=== PATIENT | male | born 1990 | race Caucasian/White ===

== ENCOUNTER 2018-10-24 21:47 | Emergency (ER) | payer BC ==
[2018-10-24] MEDS ORDERED: Cephalexin 500 MG Cap PO ONE (22:20)
[2018-10-25 01:34] VITALS: BP 129/73
--- NOTE | 2018-10-25 02:56 | EDM.PDOC ---
ED HPI GENERAL MEDICAL PROBLEM - General Chief Complaint: Laceration Stated Complaint: LACERATION RT HAND Time Seen by Provider: 10/24/18 22:00 Source of Information: Reports: Patient History Limitations: Reports: No Limitations, Other - History of Present Illness INITIAL COMMENTS - FREE TEXT/NARRATIVE: Patient was working and accidentally cut his right palmar surface with a utility knife. The 4 cm laceration transects the distal palmar full but does not transect any tendons. No loss of sensation or ROM of his hand or fingers. Tetanus up-to-date - Related Data Allergies Allergy/AdvReac Type Severity Reaction Status Date / Time No Known Allergies Allergy Verified 10/24/18 22:26 Home Meds: Home Meds PARoxetine HCl [Paxil Cr] 37.5 mg PO DAILY 09/08/16 [History] Cephalexin [Keflex] 500 mg PO TID #30 capsule 10/24/18 [Rx] Past Medical History - Past Health History Medical/Surgical History: Denies Medical/Surgical History Other Musculoskeletal History: left wrist pain Neurological History: Reports: Headaches, Chronic Social & Family History - Family History Family Medical History: Noncontributory - Tobacco Use Smoking Status *Q: Current Every Day Smoker Years of Tobacco use: 8 Packs/Tins Daily: 0.5 - Caffeine Use Caffeine Use: Reports: Energy Drinks, Soda - Recreational Drug Use Recreational Drug Use: No ED ROS GENERAL - Review of Systems Review Of Systems: ROS reveals no pertinent complaints other than HPI. ED EXAM, SKIN/RASH Exam: See Below Text/Narrative:: This pleasant man is in no acute distress has a 4 cm transdermal laceration right palmar penetrates into the subcutaneous fat but does not involve any tendons or compromise sensation or range of motion his fingers. Exam Limited By: No Limitations General Appearance: Alert, Other (Pleasant man in no acute distress) Eye Exam: Bilateral Eye: Normal Inspection Ears: Normal External Exam Nose: Normal Inspection Throat/Mouth: Normal Inspection Head: Atraumatic Neck: Normal Inspection Respiratory/Chest: No Respiratory Distress, Lungs Clear, Normal Breath Sounds, No Accessory Muscle Use, Chest Non-Tender Cardiovascular: Normal Peripheral Pulses, Regular Rate, Rhythm, No Edema, No Gallop, No JVD, No Murmur, No Rub Peripheral Pulses: 1+: Radial (L), Radial (R) GI/Abdominal: Normal Bowel Sounds, Soft (Male) Exam: Deferred Rectal (Males) Exam: Deferred Extremities: Normal Inspection Neurological: Alert, Oriented, CN II-XII Intact, Normal Cognition, Normal Gait, Normal Reflexes, No Motor/Sensory Deficits Psychiatric: Normal Affect Skin: Warm, Dry, Intact, Other (Laceration right palmar surface 4 cm transverse this to palmar crease between the second and third distal metatarsal area. does not involve the MP joints) Location, Skin: Lower Extremity, Right, Other (Right hand laceration 4 cm) Lymphatic: No Adenopathy Course - Vital Signs Last Recorded V/S: Last Vital Signs Temp 36.6 C 10/24/18 22:00 Pulse 78 10/24/18 22:00 Resp 22 H 10/24/18 22:00 BP 129/73 10/24/18 22:00 Pulse Ox 98 10/24/18 22:00 - Orders/Labs/Meds Meds: Medications Discontinued Medications Generic Name Dose Route Start Last Admin Trade Name Freq PRN Reason Stop Dose Admin Cephalexin 500 mg 10/24/18 22:20 10/24/18 22:32 Keflex PO 10/24/18 22:21 500 mg ONETIME ONE Administration - Re-Assessments/Exams Free Text/Narrative Re-Assessment/Exam: Laceration repair patient's right hand 4 cm palmar laceration that crosses the distal crease in angular fraction overt the distal 2nd and 3rd metacarpal bones enters through the dermis into the subcutaneous fat. Does not involve the tendinous structures. Sensation and motion of the fingers is intact. Patient was taken to surgical scrub bay and vigorous 8 minutes Betadine scrub with surgical scrub brush was undertaken under running water. The subcutaneous cutaneous percent injection of the lidocaine was infiltrated into the wound. Then the ulnar side of the laceration edges were freshened by removing millimeter of irregular soft tissue. The radial side of the laceration entry did not require did not debridemont. Small fragments of dirt removed. Wound was washed liberally. And then reapproximated 6 tissues of 4-0 Ethilon. Patient tolerated procedure well. Patient given prescription for Keflex 500 mg 3 times a day- 30 tablets. He received 500 mg Keflex in the ED. Tetanus is up-to-date. 10/25/18 03:07 Departure - Departure Time of Disposition: 22:30 (4 cm laceration palmar surface right hand sutured closed with 6 sutures 4-0 Ethilon. The procedure well) Disposition: Home, Self-Care 01 Condition: Good Clinical Impression: Hand laceration Qualifiers: Encounter type: initial encounter Foreign body presence: with foreign body Laterality: right Qualified Code(s): S61.421A - Laceration with foreign body of right hand, initial encounter - Discharge Information *PRESCRIPTION DRUG MONITORING PROGRAM REVIEWED*: Not Applicable *COPY OF PRESCRIPTION DRUG MONITORING REPORT IN PATIENT RIANNA: Not Applicable Prescriptions: Cephalexin [Keflex] 500 mg PO TID #30 capsule Instructions: Laceration Care, Adult Referrals: Devaughn Duncan MD [Primary Care Provider] - Forms: ED Department Discharge Additional Instructions: Sutures still in for 14 days because it is a flexor extensor surface of the hand. If any signs of infection, swelling, redness, increased pain, difficulty using her hand and return to the doctor immediately. Given a prescription for Keflex 500 m 1 tablet 3 times a day 30 tablets. Also had a dose of Keflex in the ED this evening use plain Tylenol 1000 mg ibuprofen 600 mg together every 6 hours for pain. Keep wound clean and apply bacitracin to laceration daily
== END 2018-10-24 22:30 | disposition home or self-care (01) ==
LOC: FB.ED 21:47
DX: S61.421A Laceration with foreign body of right hand, initial encounter (principal); Z79.899 Other long term (current) drug therapy; F17.210 Nicotine dependence, cigarettes, uncomplicated; W26.0XXA Contact with knife, initial encounter
CPT/HCPCS: 12002; 99282; A9270

== ENCOUNTER 2021-04-09 22:45 | Emergency (ER) | payer BC ==
[2021-04-09] MEDS ORDERED: Lidocaine 2% 20 ML MDV INFILT ONE (22:46)
[2021-04-09 23:07] VITALS: BP 116/86; PULSE 91
--- NOTE | 2021-04-09 23:21 | EDM.PDOC ---
ED HPI GENERAL MEDICAL PROBLEM - General Chief Complaint: Laceration Stated Complaint: PATIENT SLICED HIS FINGER Time Seen by Provider: 04/09/21 22:55 Source of Information: Reports: Patient History Limitations: Reports: No Limitations - History of Present Illness INITIAL COMMENTS - FREE TEXT/NARRATIVE: Patient was working in his garage when a piece of metal cut the mid phalanx of his left mid finger. He is able to extend and flex his finger without any difficulty. Left Finger-Middle Pain Score (Numeric/FACES): 4 - Related Data Allergies Allergy/AdvReac Type Severity Reaction Status Date / Time morphine Allergy Burning Verified 04/09/21 22:59 Home Meds: Home Meds PARoxetine HCL [Paxil Cr] 37.5 mg PO DAILY 09/08/16 [History] Past Medical History - Past Health History Medical/Surgical History: Denies Medical/Surgical History Other Musculoskeletal History: left wrist pain Neurological History: Reports: Headaches, Chronic Social & Family History - Family History Family Medical History: No Pertinent Family History - Tobacco Use Tobacco Use Status *Q: Never Tobacco User - Caffeine Use Caffeine Use: Reports: Energy Drinks - Alcohol Use Days Per Week of Alcohol Use: 4 Number of Drinks Per Day: 3 Total Drinks Per Week: 12 - Recreational Drug Use Recreational Drug Use: No ED ROS GENERAL - Review of Systems Review Of Systems: See Below Constitutional: Reports: No Symptoms HEENT: Reports: No Symptoms Respiratory: Reports: No Symptoms Cardiovascular: Reports: No Symptoms Endocrine: Reports: No Symptoms GI/Abdominal: Reports: No Symptoms : Reports: No Symptoms Musculoskeletal: Reports: No Symptoms Skin: Reports: Wound Neurological: Reports: No Symptoms Psychiatric: Reports: No Symptoms ED EXAM, SKIN/RASH Exam: See Below Exam Limited By: No Limitations General Appearance: Alert, No Apparent Distress Ears: Normal External Exam, Normal Canal Nose: Normal Inspection, Normal Mucosa Throat/Mouth: Normal Inspection, Normal Lips Head: Atraumatic, Normocephalic Neck: Normal Inspection, Supple, Non-Tender Respiratory/Chest: No Respiratory Distress, Lungs Clear, Normal Breath Sounds Cardiovascular: Normal Peripheral Pulses, Regular Rate, Rhythm, No Edema, No JVD, No Murmur, No Rub GI/Abdominal: Normal Bowel Sounds, Soft, Non-Tender, No Organomegaly, No Distention, No Abnormal Bruit Back Exam: Normal Inspection, Full Range of Motion Extremities: Normal Inspection, Normal Range of Motion Neurological: Alert, Oriented, CN II-XII Intact ED SKIN PROCEDURES - Laceration/Wound Repair Left Digit - 3rd (Middle) Appearance: Superficial Distal NVT: Neuro & Vascular Intact Anesthetic Type: Local Local Anesthesia - Lidocaine (Xylocaine): 2% Plain Local Anesthetic Volume: 1cc Skin Prep: Chlorhexidine (Hibiciens), Saline Exploration/Debridement/Repair: Wound Explored Closed with: Sutures Lac/Wound length In cm: 3 Suture Size: 4-0 # of Sutures: 5 Suture Type: Nylon Course - Vital Signs Text/Narrative:: UTD with immunization Last Recorded V/S: Last Vital Signs Temp 36.8 C 04/09/21 22:48 Pulse 91 04/09/21 22:48 Resp 18 04/09/21 22:48 BP 116/86 04/09/21 22:48 Pulse Ox 96 04/09/21 22:48 Departure - Departure Time of Disposition: 23:20 Disposition: Home, Self-Care 01 Condition: Good Clinical Impression: Laceration - Discharge Information Instructions: Laceration Care, Adult Additional Instructions: Please read discahre instructions on laceration and wound care Cover your wound when you are working outside of your house, air dry it-meaning don't cover it when you're inside Watch for infection: increasing redness, swelling, pain, pus discharge, fever. Removal of stitches in 10 days. Sepsis Event Note (ED) - Evaluation Sepsis Screening Result: No Definite Risk - Focused Exam Vital Signs: Vital Signs Temp Pulse Resp BP Pulse Ox 04/09/21 22:48 36.8 C 91 18 116/86 96
== END 2021-04-09 23:26 | disposition home or self-care (01) ==
LOC: FB.ED 22:45
DX: S61.213A Laceration without foreign body of left middle finger without damage to nail, initial encounter (principal); Z88.5 Allergy status to narcotic agent; W26.8XXA Contact with other sharp object(s), not elsewhere classified, initial encounter; Y99.0 Civilian activity done for income or pay; Y92.59 Other trade areas as the place of occurrence of the external cause
CPT/HCPCS: 12002; 99282-25

== ENCOUNTER 2024-02-17 17:22 | Emergency (ER) | payer BC ==
[2024-02-17 17:39] VITALS: BP 127/77; PULSE 91
[2024-02-17] MEDS: Ketorolac 30 MG/ML SDV IVPUSH ONE (17:42)
[2024-02-17 17:45] LABS: BASOPHILS PERCENT AUTO 0.5 % (0.3-3.8); EOSINOPHILS ABSOLUTE AUTO 0.1 x10-3/uL (0.0-0.6); EOSINOPHILS PERCENT AUTO 0.8 % (0.1-6.8); HEMATOCRIT 46.8 % (38.3-50.1); HEMOGLOBIN 15.7 g/dL (12.9-17.7); LYMPHOCYTES ABSOLUTE AUTO 3.1 x10-3/uL (0.5-4.5); LYMPHOCYTES PERCENT AUTO 33.2 % (15.8-45.3); MEAN CORPUSCULAR HEMOGLOBIN 28.8 pg (27.0-33.3); MEAN CORPUSCULAR HGB CONC 33.6 g/dL (28.7-35.3); MEAN CORPUSCULAR VOLUME 85.8 fL (80.8-98.7); MEAN PLATELET VOLUME 8.2 fL (6.7-11.0); MONOCYTES ABSOLUTE AUTO 0.6 x10-3/uL (0.0-1.2); NEUTROPHILS ABSOLUTE AUTO 5.6 x10-3/uL (1.7-6.9); NEUTROPHILS PERCENT AUTO 59.5 % (40.3-71.8); PLATELET COUNT,PLT 254 x10(3)uL (117-477); RED BLOOD CELL COUNT 5.46 x10(6)uL (3.90-5.90); RED CELL DISTRIBUTION WIDTH 13.2 % (12.4-15.0); WHITE BLOOD CELL COUNT,WBC 9.4 x10-3/uL (3.2-10.1)
[2024-02-17 17:48] LABS: BLOOD UREA NITROGEN,BUN 21 mg/dL (7-18); BUN/CREATININE RATIO 19.1 (9-20); CALCIUM 9.3 mg/dL (8.6-10.2); CARBON DIOXIDE,CO2 28 mmol/L (21-32); CHLORIDE,CL 101 mmol/L (100-110); CREATININE 1.1 mg/dL (0.70-1.30); EST CRCL DRUG DOSING (CG) 90.68 mL/min; ESTIMATED GFR 90 mL/min (>60); GLUCOSE RANDOM 107 mg/dL (80-116); POTASSIUM,K 3.7 mmol/L (3.5-5.3); SODIUM,NA 138 mmol/L (135-145)
[2024-02-17 17:54] LABS: A/G RATIO 1.4; ALANINE AMINOTRANSFERASE,ALT 50 U/L (12-36); ALBUMIN 4.4 g/dL (3.5-5.2); ALKALINE PHOSPHATASE 75 IU/L (56-112); ASPARTATE AMNIOTRANSFERASE,AST 23 IU/L (5-25); BILIRUBIN TOTAL 0.9 mg/dL (0.1-1.3); PROTEIN TOTAL,TP 7.5 g/dL (6.0-8.0)
== END 2024-02-17 19:01 | disposition home or self-care (01) ==
LOC: FB.ED 17:22
DX: R07.89 Other chest pain (principal); F17.210 Nicotine dependence, cigarettes, uncomplicated; Z88.5 Allergy status to narcotic agent; Z79.899 Other long term (current) drug therapy
CPT/HCPCS: 70450; 71046; 80053; 84484; 85025; 93005; 96374; 99285; J1885

== ENCOUNTER 2024-12-13 15:44 | Emergency (ER) | payer OTHER, BC ==
[2024-12-13] MEDS ORDERED: Lidocaine 1% 5 ML VIAL INFILT ONE (15:45)
[2024-12-13] MEDS: Ibuprofen 800 MG Tab PO ONE (16:12)
[2024-12-13] MEDS: Cephalexin 250 MG Cap PO ONE (17:25)
[2024-12-13 17:36] VITALS: BP 125/92; PULSE 75
== END 2024-12-13 17:36 | disposition home or self-care (01) ==
LOC: FB.ED 15:44
DX: S67.197A Crushing injury of left little finger, initial encounter (principal); S62.667B Nondisplaced fracture of distal phalanx of left little finger, initial encounter for open fracture; I10 Essential (primary) hypertension; Z88.6 Allergy status to analgesic agent; Z79.899 Other long term (current) drug therapy; Z90.49 Acquired absence of other specified parts of digestive tract; W23.0XXA Caught, crushed, jammed, or pinched between moving objects, initial encounter
CPT/HCPCS: 12001; 73140; 99283; A9270; J2003